=== PATIENT | male | born 1995 | race Two or more races ===

== ENCOUNTER → 2025-09-24 | Emergency (ER) | payer OTHER ==
[~2025-09-24] VITALS: Ht 180.3 cm; Wt 79.4 kg
[~2025-09-24] MED LIST: NALO4SPR BNOSTRILS
[2025-09-24 18:34] VITALS: BP 35/81; TEMP 98.1; O2SAT 98
== END ==
LOC: ER 18:18
DX: F11.10 Opioid abuse, uncomplicated (principal); Z00.00 Encounter for general adult medical examination without abnormal findings